=== PATIENT | female | born 1950 | race Caucasian/White ===

== ENCOUNTER → 2018-12-02 | Outpatient (CLI) | payer MEDICARE | END | disposition home or self-care (01) | LOC: RAH 16:46 | PROVIDERS: ATTEND Internal Medicine | DX: S52.501A Unspecified fracture of the lower end of right radius, initial encounter for closed fracture (principal); S52.601A Unspecified fracture of lower end of right ulna, initial encounter for closed fracture; W19.XXXA Unspecified fall, initial encounter; Y93.89 Activity, other specified; Y92.89 Other specified places as the place of occurrence of the external cause; Y99.8 Other external cause status | CPT/HCPCS: 73090; 73100; 73120 ==

== ENCOUNTER 2024-11-23 22:06 | Emergency (ER) | payer MEDICARE ==
[~2024-11-23] VITALS: Ht 154.9 cm; Wt 49.9 kg
[2024-11-23] MEDS: Solu-medROL 125MG VIAL IVP ONE (22:33)
[2024-11-23 22:34] VITALS: BP 147/84; TEMP 98.4; O2SAT 99
[2024-11-23 22:34] LABS: BASOPHILS # (AUTO) 0.07 K/uL (0.00-0.20); BASOPHILS % (AUTO) 0.5 % (0.0-5.0); EOSINOPHILS # (AUTO) 0.79 K/uL (0.00-0.70); EOSINOPHILS % (AUTO) 5.3 % (0.0-8.0); HEMATOCRIT 44.8 % (36-48); IMMATURE GRANULOCYTE ABSOLUTE 0.09 K/uL (0-1); LYMPHOCYTES % (AUTO) 13.2 % (21.0-51.0); MEAN CORPUSCULAR HEMOGLOBIN 31.3 pg (27.0-33.0); MEAN CORPUSCULAR HGB CONC 33.5 g/dL (32.0-36.0); MEAN CORPUSCULAR VOLUME 93.5 fL (79-99); MONOCYTES % (AUTO) 6.4 % (3.0-13.0); NEUTROPHILS # (AUTO) 10.9 K/uL (1.8-7.7); PLATELET COUNT (AUTO) 261 K/uL (130-400); RED BLOOD CELL COUNT(AUTO) 4.79 MIL/uL (4.00-5.50); RED CELL DISTRIBUTION WIDTH 12.1 % (11.0-15.5); WHITE BLOOD COUNT (AUTO) 14.8 K/uL (4.8-10.8)
[2024-11-23] MEDS ORDERED: TOPI25CA6 PO (22:38)
[2024-11-23] MEDS ORDERED: PROP120C2 PO (22:40)
[2024-11-23 22:47] LABS: POTASSIUM 4.2 mmol/L (3.5-5.1)
--- NOTE | 2024-11-23 22:52 | ERN ---
General Chief Complaint: Shortness of Breath Stated Complaint: SHORTNESS OF BREATH Time Seen by MD: 22:08 History of Present Illness Initial Comments 74F BIB EMS from [facility] for respiratory distress. Patient has hx of asthma. She has had cough & congestion for the past few weeks after a URI. She took a course of steroids & azithromycin. She has been using albuterol as needed. She had been improving up until today, where she became dyspneic. EMS was called. They found the patient wheezing, tripod position, with an O2 sat on RA of 75%. EMS gave 2 duonebs enroute. On arrival the patient is much improved, speaking full sentences, without accessory muscle use, with mild tachypnea and wheezing. PCP: Galileo Castillo Allergies: Coded Allergies: alendronate sodium (Unverified Allergy, Severe, PAIN TO NECK, 09/11/13) risedronate sodium (Unverified Allergy, Severe, TERRIBLE PAIN ACROSS NECK, 09/11/13) Home Meds Reported Medications Propranolol HCl (Propranolol HCl) 120 Mg Cap.sa.24h, 120 MG PO DAILY 11/23/24 Topiramate (Topiramate) 25 Mg Cap.sprink, 25 MG PO BID, CAP.SPRINK 11/23/24 Past Medical History Past Medical History: Asthma Past Surgical History: None ROS Dictation CONSTITUTIONAL: No chills, no fever, no weakness, no diaphoresis, no malaise. HEAD/FACE: No signs of trauma. EENT: No eye pain, no blurred vision, no tearing, no double vision, no ear pain, no ear discharge, no nose pain, no nasal congestion, no throat pain, no throat swelling, no mouth pain. RESPIRATORY: Cough congestion and wheezing CARDIOVASCULAR: No chest pain, no edema, no palpitations, no syncope. GASTROINTESTINAL/ABDOMINAL: No abdominal pain, no constipation, no diarrhea, no nausea, no vomiting. GENITOURINARY: No abnormal discharge, no dysuria, no frequent urination, no hematuria. No complaints of pain in the genitals. MUSCULOSKELETAL: No back pain, no gout, no joint pain, no joint swelling, no muscle pain, no muscle stiffness, no neck pain. INTEGUMENTARY: No change in color, no change in hair/nails, no dryness, no lesion, no lumps, no rash. NEUROLOGICAL/PSYCH: No anxiety, not depressed, no emotional problem, no headache, no numbness, no pre-existing deficit, no history of seizures, no tremors, no weakness. HEMATOLOGIC/LYMPHATIC: Not anemic, no history of blood clots, no apparent bleeding, no bruising, glands not swollen. All Systems Negative, Except as Noted. Physical Exam Physical Exam Dictation VITAL SIGNS: Reviewed. GENERAL APPEARANCE: Alert, oriented x3, no acute distress EYES: PERRL, pink conjunctivas, eyelid no trauma, anterior chamber clear. EARS: Pinnas intact and no signs of trauma or erythema. Ear canals clear and no discharge. TMs no erythema. NOSE: No discharge, no bleeding. OROPHARYNX: Mouth normal, teeth no caries, tongue pink. Pharynx clear, no erythema. Tonsils no exudates, no abscesses noted. Mucous membrane moist. NECK: Supple, non-tender, no thyromegaly, no masses, no JVD, no bruits. BREAST: Deferred. CHEST: No tenderness, no crepitus, no paradoxical movement, no retractions. LUNGS: moderate all lobes exp wheezing, speaking full sentences, no accessory muscle use, mild tachypnea, no swelling, no JVD, no hepatojugular reflux HEART: Regular rate, regular rhythm, no murmur, no gallops. VASCULAR: No peripheral edema. ABDOMEN: Soft, positive bowel sounds, nondistended, no guarding, nontender, no rebound, no masses no hepatomegaly, no splenomegaly, no Rojo's sign, no hernias. RECTAL: Deferred. GENITAL: Deferred. NEUROLOGICAL: Normal speech, gross motor function intact, gross sensory function intact. MUSCULOSKELETAL: Neck nontender, full range of motion, back nontender, full range of motion. EXTREMITIES: Nontender, full range of motion. SKIN: Color pink, dry, no turgor, no rash, no lacerations, no abrasions, no contusions. LYMPHATICS: Deferred. Results Laboratory and Microbiology Lab and Micro Result Laboratory Tests Test 11/23/24 22:28 White Blood Count 14.8 K/uL (4.8-10.8) H Red Blood Count 4.79 MIL/uL (4.00-5.50) Hemoglobin 15.0 g/dL (12.0-16.0) Hematocrit 44.8 % (36-48) Mean Corpuscular Volume 93.5 fL (79-99) Mean Corpuscular Hemoglobin 31.3 pg (27.0-33.0) Mean Corpuscular Hemoglobin Concent 33.5 g/dL (32.0-36.0) Red Cell Distribution Width 12.1 % (11.0-15.5) Platelet Count 261 K/uL (130-400) Mean Platelet Volume 9.7 fL (7.5-10.5) Immature Granulocyte % (Auto) 0.6 % (0-1) Neutrophils (%) (Auto) 74.0 % (40.0-77.0) Lymphocytes (%) (Auto) 13.2 % (21.0-51.0) L Monocytes (%) (Auto) 6.4 % (3.0-13.0) Eosinophils (%) (Auto) 5.3 % (0.0-8.0) Basophils (%) (Auto) 0.5 % (0.0-5.0) Neutrophils # (Auto) 10.9 K/uL (1.8-7.7) H Lymphocytes # (Auto) 2.0 K/uL (1.0-4.8) Monocytes # (Auto) 1.0 K/uL (0.1-1.0) Eosinophils # (Auto) 0.79 K/uL (0.00-0.70) H Basophils # (Auto) 0.07 K/uL (0.00-0.20) Absolute Immature Granulocyte (auto 0.09 K/uL (0-1) Nucleated Red Blood Cells 0.0 % (0.0-0.19) Sodium Level 140 mmol/L (136-145) Potassium Level 4.2 mmol/L (3.5-5.1) Chloride Level 102 mmol/L (101-111) Carbon Dioxide Level 29 mmol/L (21-32) Blood Urea Nitrogen 16 mg/dL (7-18) Creatinine 1.0 mg/dL (0.5-1.0) Glomerular Filtration Rate Calc 60 mL/min (>90) Random Glucose 154 mg/dL (70-105) H Total Calcium 9.9 mg/dL (8.5-10.1) Total Creatine Kinase 88 U/L (21-232) Troponin I High Sensitivity 17.7 ng/L (4-50) B-Type Natriuretic Peptide 43 pg/mL (0-100) MDM CC: Respiratory distress/wheezing Historian: Patient Comorbidities: Asthma Limitations by social determinants of health: None Differential diagnosis: Asthma exacerbation, respiratory distress, other. Initial vital signs: Tachypneic breathing 20 times a minute, otherwise unremarkable. Oxygen saturation 95% on room air. Clinically patient was having expiratory wheezing consistent with an asthma exacerbation. Labs: Mild leukocytosis 14.8 1000, patient has recently been taking steroids which is likely causing this elevation. There is no shift or bands. Chemistry panel is unremarkable. Independently interpreted by me. Chest x-ray: No focal infiltrates or cardiomegaly or vascular congestion independently interpreted by me. Patient received IV methylprednisolone, 7.5 mg of inhaled albuterol and 500 mcg of Atrovent. Re-evaluation: Patient was much improved. Oxygen saturation 99%. He is speaking full sentences. Very minimal wheezing lung exam. At this point in time patient is safe for an outpatient workup/discharge. We will discharge with a Medrol Dosepak. Patient already has not albuterol inhaler which she can use regularly. She will follow up with Dr. Castillo as an outpatient. ED Course Orders Procedure Category Date Status Time Arterial Blood Gas RT 11/23/24 Transmitted 22:19 Cbc With Differential LAB 11/23/24 Complete 22:19 B-Type Natriuretic LAB 11/23/24 Complete Peptide 22:19 Cardiac Panel LAB 11/23/24 Complete 22:19 Chest 1vw RAD 11/23/24 Resulted 22:19 12 Lead Ekg Tracing- EKG 11/23/24 Logged Technical 22:19 Albuterol 0.083% PHA 11/23/24 Complete 2.5mg/3ml (Proventil 22:30 Ipratropium 0.5 PHA 11/23/24 Complete Mg/2.5 Ml Inh 22:30 Methylprednisolone PHA 11/23/24 Complete Succ 125mg (Solu-Medr 22:30 Basic Metabolic Panel LAB 11/23/24 Complete 22:19 Current Medications Medications (Trade) Dose Ordered Sig/Angel Route PRN Reason Start Time Stop Time Status Last Admin Dose Admin Albuterol Sulfate (Proventil 0.083% 2.5mg/3ml) 7.5 mg ONCE ONCE IH 11/23/24 22:30 11/23/24 22:31 DC 11/23/24 22:56 Ipratropium [place] (AtrovENT UD) 0.5 mg ONCE ONCE IH 11/23/24 22:30 11/23/24 22:31 DC 11/23/24 22:56 Methylprednisolone Sodium Succinate (Solu-medROL 125MG) 125 mg ONCE ONCE IVP 11/23/24 22:30 11/23/24 22:31 DC 11/23/24 22:33 Vital Signs Date Time Temp Pulse Resp B/P (MAP) Pulse Ox O2 Delivery O2 Flow Rate FiO2 11/23/24 22:57 78 20 11/23/24 22:34 98.4 78 18 147/84 99 Room Air* 0 21 11/23/24 22:10 97.9 81 20 154/89 95 Room Air 0 DX & DISP Disposition: Discharge Departure Impression: Primary Impression: Asthma exacerbation Condition: Stable Scripts Methylprednisolone (Medrol) 4 Mg Tab.ds.pk 1 TAB PO AD for 6 Days, #21 TAB 0 Refills 6 on day 1 then reduce by one tablet daily until gone Prov: ARLEY GAYLE DO 11/23/24 Additional Instructions: You are having an asthma exacerbation. This is likely caused by your recent viral respiratory infection. Your chest x-ray is clear. Your lab work is unremarkable. As we discussed, I recommend that you take a course of steroids. I have prescribed a Medrol Dosepak. Take as prescribed. Start these in the morning. I recommend that you take two puffs of your albuterol inhaler every 4 hours for the next 24-48 hours. After that use as needed for wheezing or cough. You can also take [id number] cough and congestion medications. Please complete the course of antibiotics that you were prescribed by Dr. Castillo. Continue with all other home medications. Please return to the emergency department if you have any concerning symptoms. You can follow up with Dr. Castillo for re-evaluation later this week as needed. Referrals: ANISHA CASTILLO MD (PCP) ARLEY GAYLE DO Nov 23, 2024 22:52
[2024-11-23] MEDS: ALBUTEROL 0.083% 2.5 MG/3 ML INH IH ONE (22:56)
[2024-11-23] MEDS: IpraTROPium 0.5 MG/2.5 ML INH IH ONE (22:56)
[2024-11-23 22:57] VITALS: PULSE 78; RESP 20
[2024-11-23 23:02] LABS: B-TYPE NATRIURETIC PEPTIDE 43 pg/mL (0-100)
--- NOTE | 2024-11-23 23:24 | HMCIMG ---
CHEST 1VW HISTORY: Dyspnea COMPARISON: None FINDINGS: A frontal projection of the chest was obtained. No acute pulmonary infiltrates is seen. The heart is normal in size. Prominent interstitial markings are seen. Calcified granuloma is seen in the right midlung. No evidence of aortic calcification is seen. IMPRESSION: 1. No acute pulmonary infiltrate is seen.
[2024-11-23] MEDS ORDERED: METH4TAB3 PO (23:42)
--- NOTE | 2024-11-24 05:56 | EKG ---
[facility] Test Date: 2024-11-23 Test Time: 22:30:27 Pat Name: AVERY ENCARNACION Department: ED Room: Gender: F [employer]ounder And President: [id number] : 1950 Requested By: ARLEY GAYLE Order Number: [id number] Reading MD: Arturo Garrett Measurements Intervals [place] Rate: 71 P: 42 [place]: 162 QRS: -13 QRSD: 96 T: 43 QT: 390 QTc: 424 Interpretive Statements Sinus rhythm No previous ECG available for comparison Electronically Signed On 11-24-2024 17:08:41 [employer] by Arturo Garrett Please click the below link to view image of tracing.
== END 2024-11-23 23:56 | disposition home or self-care (01) ==
LOC: EDH 22:06
DX: J45.901 Unspecified asthma with (acute) exacerbation (principal); Z79.899 Other long term (current) drug therapy
CPT/HCPCS: 99285; 82550; 84484; 80048; 83880; 85025; 36415; 71045; 96374; 93005; 94640; J2919